=== PATIENT | female | born 1990 | race Native Hawaiian/Other Pacific Islander ===

== ENCOUNTER 2017-09-05 10:52 | Outpatient (CLI) | payer OTHER | END 2017-09-05 11:55 | disposition home or self-care (01) | LOC: RAD 10:52 | DX: M53.3 Sacrococcygeal disorders, not elsewhere classified (principal) ==

== ENCOUNTER 2018-03-29 22:39 | Emergency (ER) | payer OTHER ==
[~2018-03-29] VITALS: Ht 162.6 cm; Wt 568.4 kg
[2018-03-29 22:46] VITALS: BP 120/87; TEMP 99.3
[2018-03-29] MEDS ORDERED: NAPROSYN500 MG PO (22:51)
[2018-03-29] MEDS ORDERED: CLON1TAB18 PO (22:51)
[2018-03-29] MEDS ORDERED: CELEXA40 MG PO (22:56)
== END 2018-03-30 00:11 | disposition home or self-care (01) ==
LOC: ED 22:39
DX: M25.531 Pain in right wrist (principal); W18.39XA Other fall on same level, initial encounter; Y92.89 Other specified places as the place of occurrence of the external cause
CPT/HCPCS: 99283

== ENCOUNTER 2019-01-27 12:05 | Emergency (ER) | payer OTHER ==
[~2019-01-27] VITALS: Ht 162.6 cm; Wt 59.0 kg
[~2019-01-27 12:05] MED LIST: CELEXA40 MG PO; CLON1TAB18 PO; NAPROSYN500 MG PO
[2019-01-27 13:11] VITALS: BP 136/91; TEMP 98.1
== END 2019-01-27 13:15 | disposition home or self-care (01) ==
LOC: ED 12:05
DX: S30.861A Insect bite (nonvenomous) of abdominal wall, initial encounter (principal); S30.860A Insect bite (nonvenomous) of lower back and pelvis, initial encounter; W57.XXXA Bitten or stung by nonvenomous insect and other nonvenomous arthropods, initial encounter; Y92.89 Other specified places as the place of occurrence of the external cause
CPT/HCPCS: 96372; 99283; J1885

== ENCOUNTER 2019-09-03 15:15 | Emergency (ER) | payer OTHER ==
[~2019-09-03] VITALS: Ht 162.6 cm; Wt 56.7 kg
[2019-09-03 16:40] LABS: POTASSIUM 3.5 mmol/L (3.6-5.2)
[2019-09-03 16:42] LABS: PLATELET COUNT 174 K/uL (152-353)
[2019-09-03 17:25] VITALS: BP 116/75; TEMP 98.6
== END 2019-09-03 19:21 | disposition home or self-care (01) ==
LOC: ED 15:15
PROVIDERS: Family Medicine
DX: G43.909 Migraine, unspecified, not intractable, without status migrainosus (principal)
CPT/HCPCS: 80053; 85027; 96372; 99283; J1885

== ENCOUNTER 2020-01-05 23:28 | Emergency (ER) | payer OTHER ==
[~2020-01-05] VITALS: Ht 162.6 cm; Wt 56.7 kg
[2020-01-06 01:45] VITALS: BP 105/68; TEMP 98.5
== END 2020-01-06 01:45 | disposition home or self-care (01) ==
LOC: ED 23:28
PROC: 2W3JX1Z Immobilization of Right Finger using Splint (ICD-10-PCS; principal; 2020-01-05)
DX: S63.696A Other sprain of right little finger, initial encounter (principal); R22.31 Localized swelling, mass and lump, right upper limb; W23.0XXA Caught, crushed, jammed, or pinched between moving objects, initial encounter; Y92.89 Other specified places as the place of occurrence of the external cause
CPT/HCPCS: 96372; 99284; J1885

== ENCOUNTER 2021-06-29 20:17 | Emergency (ER) | payer OTHER ==
[~2021-06-29] VITALS: Ht 162.6 cm; Wt 54.4 kg
[2021-06-29 20:25] VITALS: TEMP 98.8
[2021-06-29 22:47] VITALS: BP 110/67
== END 2021-06-29 22:47 | disposition home or self-care (01) ==
LOC: ED 20:17
DX: S93.691A Other sprain of right foot, initial encounter (principal); X58.XXXA Exposure to other specified factors, initial encounter; Y93.G3 Activity, cooking and baking; Y92.89 Other specified places as the place of occurrence of the external cause
CPT/HCPCS: 99283

== ENCOUNTER 2021-08-26 22:35 | Emergency (ER) | payer OTHER ==
[~2021-08-26] VITALS: Ht 162.6 cm; Wt 56.2 kg
[2021-08-27 01:00] VITALS: BP 120/76; TEMP 98
== END 2021-08-27 01:00 | disposition home or self-care (01) ==
LOC: ED 22:35
DX: S13.4XXA Sprain of ligaments of cervical spine, initial encounter (principal); R51.9 Headache, unspecified; S16.1XXA Strain of muscle, fascia and tendon at neck level, initial encounter; M62.838 Other muscle spasm; V43.52XA Car driver injured in collision with other type car in traffic accident, initial encounter; Y92.89 Other specified places as the place of occurrence of the external cause
CPT/HCPCS: 93005; 96372; 99283; J1170; J2405

== ENCOUNTER 2022-08-16 12:10 | Outpatient (CLI) | payer OTHER ==
[2022-08-16 12:40] LABS: PLATELET COUNT 225 K/uL (152-353)
[2022-08-16 13:05] LABS: POTASSIUM 3.7 mmol/L (3.6-5.2)
== END 2022-08-16 20:32 | disposition home or self-care (01) ==
LOC: LABW 12:10
PROVIDERS: ATTEND Nurse Practitioner Family
DX: L65.9 Nonscarring hair loss, unspecified (principal)
CPT/HCPCS: 36415; 80053; 82306; 82626; 82728; 83540; 83550; 84270; 84402; 84403; 84439; 84443; 84591; 85027; 86038; 86376; 86800

== ENCOUNTER 2023-06-02 08:23 | Outpatient (CLI) | payer OTHER | END 2023-06-02 18:59 | disposition home or self-care (01) | LOC: US 08:23 | PROVIDERS: ATTEND Nurse Practitioner | DX: Z01.818 Encounter for other preprocedural examination (principal) ==